=== PATIENT | female | born 1990 | race Caucasian/White ===

== ENCOUNTER 2019-11-07 07:59 | Emergency (ER) | payer OTHER ==
[~2019-11-07] VITALS: Ht 162.6 cm; Wt 52.2 kg
== END 2019-11-07 17:51 | disposition home or self-care (01) ==
LOC: ER 07:59
DX: O26.891 Other specified pregnancy related conditions, first trimester (principal); R10.13 Epigastric pain; O21.0 Mild hyperemesis gravidarum; O26.851 Spotting complicating pregnancy, first trimester; O36.80X1 Pregnancy with inconclusive fetal viability, fetus 1

== ENCOUNTER → 2020-02-09 | Outpatient (CLI) | payer OTHER | END | disposition home or self-care (01) | LOC: PRENATAL 15:00 | DX: Z36.0 Encounter for antenatal screening for chromosomal anomalies (principal); Z34.02 Encounter for supervision of normal first pregnancy, second trimester ==

== ENCOUNTER → 2020-04-19 | Outpatient (CLI) | payer OTHER ==
[~2020-04-19] MED LIST: PRENATAL + DHA1 EAC1 PO; VITAMIN C100 MG PO
== END | disposition home or self-care (01) ==
LOC: PRENATAL 13:30
PROVIDERS: ATTEND Obstetrics & Gynecology
DX: O26.843 Uterine size-date discrepancy, third trimester (principal)

== ENCOUNTER 2020-06-07 13:16 | Inpatient (IN) | payer OTHER ==
[~2020-06-07] VITALS: Ht 162.6 cm; Wt 65.3 kg
[2020-06-07] MEDS ORDERED: VITAMIN C100 MG PO (14:46)
[2020-06-07] MEDS ORDERED: PRENATAL + DHA1 EAC1 PO (14:46)
== END 2020-06-13 16:27 | disposition home or self-care (01) | DRG 787 ==
LOC: SURG-SUITE 13:16 → LDR 13:16 → SURG-SUITE 06-08 16:41
PROVIDERS: ADMIT Obstetrics & Gynecology; ATTEND Obstetrics & Gynecology
PROC: 4A1HXCZ Monitoring of Products of Conception, Cardiac Rate, External Approach (ICD-10-PCS; 2020-06-07)
PROC: BY4FZZZ Ultrasonography of Third Trimester, Single Fetus (ICD-10-PCS; 2020-06-07)
PROC: 10D00Z1 Extraction of Products of Conception, Low, Open Approach (ICD-10-PCS; principal; 2020-06-09 15:00)
DX: O64.2XX0 Obstructed labor due to face presentation, not applicable or unspecified (principal); O41.03X0 Oligohydramnios, third trimester, not applicable or unspecified; Z3A.37 37 weeks gestation of pregnancy; Z37.0 Single live birth

== ENCOUNTER 2022-05-01 11:49 | Emergency (ER) | payer OTHER ==
[~2022-05-01] VITALS: Ht 162.6 cm; Wt 52.2 kg
== END 2022-05-01 16:11 | disposition home or self-care (01) ==
LOC: ER 11:49
DX: S00.83XA Contusion of other part of head, initial encounter (principal); X58.XXXA Exposure to other specified factors, initial encounter; Y93.9 Activity, unspecified; Y92.9 Unspecified place or not applicable; Y99.9 Unspecified external cause status; R51.9 Headache, unspecified

== ENCOUNTER 2024-03-03 08:30 | Outpatient (CLI) | payer OTHER | END 2024-03-03 08:43 | disposition home or self-care (01) | LOC: SONOGRAMA 08:30 | PROVIDERS: ATTEND Obstetrics & Gynecology | DX: N60.01 Solitary cyst of right breast (principal); N60.02 Solitary cyst of left breast; R10.2 Pelvic and perineal pain ==